=== PATIENT | male | born 2000 | race Two or more races ===

== ENCOUNTER 2023-03-27 12:27 | Inpatient (IN) | payer OTHER ==
[2023-03-27 15:27] LABS: VENOUS BASE EXCESS 0.4 mmol/L (-2-2); VENOUS O2 SATURATION 88.3 % (70-80); VENOUS PCO2 36.4 mmHg (38-52); VENOUS PH 7.44 (7.310-7.410)
[2023-03-27 15:36] LABS: BASO % 0.5 % (0-2.0); EOS % 2.6 % (0-4.5); HEMOGLOBIN 13.4 GM/dL (11.7-16.9); LYMPH % 11.7 % (8-40); MCH 30.7 pg (25.7-33.7); MCHC 33.4 g/dl (32.0-35.9); MEAN CELL VOLUME 91.9 fl (80-96); MEAN PLT VOLUME 8.7 fl (7.5-11.1); MONO % 8.5 % (3.8-10.2); NEUT % 76.7 % (42.8-82.8); PLATELET COUNT 287 10^3/uL (134-434); RBC 4.35 M/mm3 (4.00-5.60); RDW 13.3 % (11.9-15.9); WHITE BLOOD COUNT 7.4 K/mm3 (4.0-10.0)
[2023-03-27 15:43] LABS: INR 1.11 (0.83-1.09); PROTHROMBIN TIME (PATIENT) 12.9 SEC (9.7-13.0)
[2023-03-27] MEDS: SODIUM CHLORIDE 3,130 ML IV ONE (15:45)
[2023-03-27 15:46] LABS: ACTIVATED PTT 23.3 SECONDS (25.2-36.5)
[2023-03-27 17:21] LABS: CHLORIDE 100 mmol/L (98-107); SODIUM 128 mmol/L (136-145)
[2023-03-27 17:23] LABS: CALCIUM 8.7 mg/dL (8.5-10.1)
[2023-03-27 17:24] LABS: ALBUMIN 3.2 g/dl (3.4-5.0); BLOOD UREA NITROGEN 9.9 mg/dL (7-18); CO2 22 mmol/L (21-32); GLUCOSE,RANDOM 80 mg/dL (74-106)
[2023-03-27 17:27] LABS: CREATININE 1.1 mg/dL (0.55-1.3)
[2023-03-27 17:28] LABS: TOT PROT 8.9 g/dl (6.4-8.2)
[2023-03-27 17:29] LABS: BILIRUBIN,TOTAL 0.6 mg/dL (0.2-1)
[2023-03-27 17:30] LABS: ALK PHOS 87 U/L (45-117); ANION GAP 6 mmol/L (4-13); POTASSIUM 8.1 mmol/L (3.5-5.1); SGOT/AST 136 U/L (15-37); SGPT/ALT 119 U/L (13-61)
[2023-03-27] MEDS ORDERED: ACETAMINOPHEN INJECTION 100 ML IVPB ONE (18:04)
[2023-03-27] MEDS ORDERED: FAMOTIDINE 20 MG/50 ML IVPB 20 MG/50 ML MG IVPB ONE (18:05)
[2023-03-27] MEDS: ACETAMINOPHEN 1000 MG/100 ML BAG IVPB ONE (18:10)
[2023-03-27] MEDS: FAMOTIDINE 20 MG/50 ML IVPB 20 MG/50 ML MG IVPB ONE (19:25)
[2023-03-27] MEDS ORDERED: SULFAMETHOXAZOLE/TRIMETHOPRIM 800MG/160MG D.S. TABLET ONE (20:30)
[2023-03-27] MEDS: SULFAMETHOXAZOLE/TRIMETHOPRIM 400MG/80MG S.S. TABLET PO ONE (20:32)
[2023-03-27 21:23] LABS: CALCIUM 8.3 mg/dL (8.5-10.1)
[2023-03-27 21:24] LABS: BLOOD UREA NITROGEN 10.2 mg/dL (7-18)
[2023-03-27 21:27] LABS: CREATININE 0.9 mg/dL (0.55-1.3)
[2023-03-27 21:29] LABS: BILIRUBIN,TOTAL 0.4 mg/dL (0.2-1); TOT PROT 7.3 g/dl (6.4-8.2)
[2023-03-27 21:58] LABS: URINE APPEARANCE CLEAR; URINE BILIRUBIN NEGATIVE (NEGATIVE); URINE COLOR YELLOW; URINE GLUCOSE (UA) NEGATIVE (NEGATIVE); URINE KETONE NEGATIVE (NEGATIVE); URINE LEUK ESTERASE NEGATIVE (NEGATIVE); URINE NITRITE NEGATIVE (NEGATIVE); URINE PROTEIN NEGATIVE (NEGATIVE)
[2023-03-28] MEDS ORDERED: LIDOCAINE HCL 2% (20ML MULTI-DOSE VIAL) ONE (01:58)
[2023-03-28] MEDS ORDERED: ACETAMINOPHEN 325 MG TABLET (FP) ONE (02:15)
[2023-03-28] MEDS: ACETAMINOPHEN 325 MG TABLET (FP) PO PRN (02:17)
[2023-03-28 03:33] LABS: BF GLUCOSE (CSF ONLY) 52 mg/dL (40-70)
[2023-03-28 03:47] VITALS: BMI 34.2
[2023-03-28 04:25] LABS: CSF APPEARANCE CLEAR (CLEAR); CSF COLOR COLORLESS (COLORLESS); CSF WBC 5 mm3 (0-5)
[2023-03-28] MEDS: DOXYCYCLINE HYCLATE 100 MG CAPSULE PO SCH (09:21)
[2023-03-28] MEDS ORDERED: ENOXAPARIN NA (PORCINE) 40 MG/0.4 ML DISP.SYRIN SQ SCH (10:00)
[2023-03-28 10:11] LABS: BASO % 0.8 % (0-2.0); EOS % 2.3 % (0-4.5); LYMPH % 11.7 % (8-40); MCH 30.5 pg (25.7-33.7); MCHC 33.3 g/dl (32.0-35.9); MEAN CELL VOLUME 91.6 fl (80-96); MEAN PLT VOLUME 7.7 fl (7.5-11.1); MONO % 9.7 % (3.8-10.2); NEUT % 75.5 % (42.8-82.8); PLATELET COUNT 270 10^3/uL (134-434); RBC 4.26 M/mm3 (4.00-5.60); RDW 13.3 % (11.9-15.9); WHITE BLOOD COUNT 6.7 K/mm3 (4.0-10.0)
[2023-03-28] MEDS: VANCOMYCIN/WATER FOR INJ (PEG) 1,000 MG/200 ML BAG IVPB ONE (10:20)
[2023-03-28] MEDS: SULFAMETHOXAZOLE/TRIMETHOPRIM 800MG/160MG D.S. TABLET PO SCH (10:21)
[2023-03-28 10:40] LABS: BLOOD UREA NITROGEN 9.7 mg/dL (7-18); CALCIUM 8.6 mg/dL (8.5-10.1)
[2023-03-28 10:44] LABS: CREATININE 0.9 mg/dL (0.55-1.3); PHOSPHOROUS 2.8 mg/dL (2.5-4.9)
[2023-03-28 10:45] LABS: BILIRUBIN,TOTAL 0.5 mg/dL (0.2-1); TOT PROT 7.7 g/dl (6.4-8.2)
[2023-03-28] MEDS: CEFTRIAXONE 2 GM in DEXTROSE 5%-WATER 100 ML IVPB SCH ×2 (10:47→21:14)
[2023-03-28] MEDS: ACETAMINOPHEN 1000 MG/100 ML BAG IVPB PRN (11:02)
[2023-03-28] MEDS: BICTEGRAV/EMTRICIT/TENOFOV (BIKTARVY) 50-200-25 MG TABLET PO SCH (11:22)
[2023-03-28] MEDS: AMPICILLIN NA/SULBACTAM NA 2 GM in SODIUM CHLORIDE 100 ML IVPB SCH (11:32)
[2023-03-28] MEDS: AMPICILLIN NA/SULBACTAM NA 3 GM in SODIUM CHLORIDE 100 ML IVPB SCH (12:36)
[2023-03-28] MEDS: ACYCLOVIR INJECTION 800 MG in DEXTROSE 5%-WATER - 250 ML IVPB SCH (13:33)
[2023-03-28 14:16] LABS: COCAINE, UR NEGATIVE (NEGATIVE)
[2023-03-28 14:17] LABS: METHADONE, UR NEGATIVE (NEGATIVE); OPIATES, URI NEGATIVE (NEGATIVE); PHENCYCLIDINE,URINE NEGATIVE (NEGATIVE); URINE BARBITURATES NEGATIVE (NEGATIVE); URINE BENZODIAZEPINES NEGATIVE (NEGATIVE)
[2023-03-28 14:46] LABS: URINE AMPHETAMINES NEGATIVE (NEGATIVE)
[2023-03-28] MEDS: SODIUM CHLORIDE 1,000 ML IV STA (15:01)
[2023-03-28] MEDS: VANCOMYCIN/WATER FOR INJ (PEG) 1,000 MG/200 ML BAG IVPB SCH (18:49)
[2023-03-28] MEDS: DEXTROSE 5% IVPB SCH (20:56)
[2023-03-28] MEDS: WATER IVPB SCH (20:56)
[2023-03-28] MEDS: AMPHOTERICIN B LIPOSOMAL IVPB SCH (20:56)
[2023-03-29 10:19] LABS: BASO % 0.4 % (0-2.0); HEMATOCRIT 37.9 % (35.4-49); HEMOGLOBIN 12.6 GM/dL (11.7-16.9); LYMPH % 8.8 % (8-40); MCH 31.3 pg (25.7-33.7); MCHC 33.4 g/dl (32.0-35.9); MEAN CELL VOLUME 93.6 fl (80-96); MEAN PLT VOLUME 7.9 fl (7.5-11.1); NEUT % 82.8 % (42.8-82.8); PLATELET COUNT 255 10^3/uL (134-434); RBC 4.04 M/mm3 (4.00-5.60); RDW 13.1 % (11.9-15.9); WHITE BLOOD COUNT 6.7 K/mm3 (4.0-10.0)
[2023-03-29 10:35] LABS: CALCIUM 8.4 mg/dL (8.5-10.1)
[2023-03-29 10:36] LABS: BLOOD UREA NITROGEN 7.6 mg/dL (7-18)
[2023-03-29 10:39] LABS: BILIRUBIN,TOTAL 0.4 mg/dL (0.2-1)
[2023-03-29 10:42] LABS: TOT PROT 7.7 g/dl (6.4-8.2)
[2023-03-29] MEDS: ACETAMINOPHEN 1000 MG/100 ML BAG IVPB PRN ×2 (12:38→20:33)
[2023-03-29] MEDS: traMADol HCL 50 MG TABLET PO PRN (18:29)
[2023-03-29] MEDS: FLUCYTOSINE 250 MG CAPSULE PO SCH (20:08)
[2023-03-30 09:16] LABS: HEMATOCRIT 37.3 % (35.4-49); HEMOGLOBIN 12.4 GM/dL (11.7-16.9); MCH 30.8 pg (25.7-33.7); MCHC 33.3 g/dl (32.0-35.9); MEAN CELL VOLUME 92.3 fl (80-96); MEAN PLT VOLUME 8.1 fl (7.5-11.1); PLATELET COUNT 263 10^3/uL (134-434); RBC 4.04 M/mm3 (4.00-5.60); WHITE BLOOD COUNT 6.5 K/mm3 (4.0-10.0)
[2023-03-30] MEDS ORDERED: ACETAMINOPHEN 1000 MG/100 ML BAG IVPB PRN (09:55)
[2023-03-30 10:50] LABS: POTASSIUM 4.1 mmol/L (3.5-5.1)
[2023-03-30 10:52] LABS: CALCIUM 8.3 mg/dL (8.5-10.1)
[2023-03-30 10:53] LABS: ALBUMIN 3.2 g/dl (3.4-5.0)
[2023-03-30 10:56] LABS: BLOOD UREA NITROGEN 8.8 mg/dL (7-18); CREATININE 1.1 mg/dL (0.55-1.3)
[2023-03-30 10:58] LABS: BILIRUBIN,TOTAL 0.4 mg/dL (0.2-1); TOT PROT 7.9 g/dl (6.4-8.2)
[2023-03-30 12:16] LABS: ANISOCYTOSIS 0; MACROCYTOSIS 0
[2023-03-30] MEDS ORDERED: FLUCYTOSINE 500 MG CAPSULE PO ONE (15:00)
[2023-03-30] MEDS: FLUCYTOSINE 500 MG CAPSULE PO ONE (15:00)
[2023-03-30] MEDS: IBUPROFEN 200 MG TABLET PO PRN (15:08)
[2023-03-30] MEDS: ACETAMINOPHEN 325 MG TABLET (FP) PO ONE (17:21)
[2023-03-30] MEDS: FLUCYTOSINE 250 MG CAPSULE PO SCH (19:26)
[2023-03-30] MEDS ORDERED: NYSTATIN 500,000 UNITS TABLET PO SCH (22:00)
[2023-03-30] MEDS: MELATONIN 1 MG TABLET PO SCH (22:51)
[2023-03-31] MEDS: ALPRAZolam 1 MG TABLET PO PRN (01:27)
[2023-03-31 10:14] LABS: HEMATOCRIT 34.8 % (35.4-49); HEMOGLOBIN 11.6 GM/dL (11.7-16.9); MCH 30.7 pg (25.7-33.7); MCHC 33.3 g/dl (32.0-35.9); MEAN CELL VOLUME 92.1 fl (80-96); MEAN PLT VOLUME 7.6 fl (7.5-11.1); PLATELET COUNT 250 10^3/uL (134-434); RBC 3.78 M/mm3 (4.00-5.60); RDW 13.3 % (11.9-15.9); WHITE BLOOD COUNT 5.8 K/mm3 (4.0-10.0)
[2023-03-31 10:22] LABS: POTASSIUM 4.7 mmol/L (3.5-5.1)
[2023-03-31 10:24] LABS: CALCIUM 8.2 mg/dL (8.5-10.1)
[2023-03-31 10:25] LABS: ALBUMIN 2.9 g/dl (3.4-5.0); BLOOD UREA NITROGEN 18.5 mg/dL (7-18)
[2023-03-31 10:30] LABS: BILIRUBIN,TOTAL 0.4 mg/dL (0.2-1); TOT PROT 7.4 g/dl (6.4-8.2)
[2023-03-31 12:17] LABS: ANISOCYTOSIS 0; HELMET CELLS 0; HOWELL-JOLLY BODIES 0; MACROCYTOSIS 0; OVALOCYTE 0; ROULEAU 0; SICKELED CELLS 0; TARGET CELLS 0; TEAR DROP CELLS 0; TOXIC GRANULATION 0
[2023-03-31] MEDS: SODIUM CHLORIDE 1,000 ML IV SCH ×2 (13:05→16:40)
[2023-03-31] MEDS: PANTOPRAZOLE 40 MG TABLET PO SCH (13:06)
[2023-03-31] MEDS ORDERED: AMPICILLIN NA/SULBACTAM NA 3 GM in SODIUM CHLORIDE 100 ML IVPB SCH (13:32)
[2023-03-31] MEDS: ACETAMINOPHEN 325 MG TABLET (FP) PO PRN (16:40)
[2023-03-31] MEDS: traMADol HCL 50 MG TABLET PO ONE (23:09)
[2023-04-01] MEDS: SULFAMETHOXAZOLE/TRIMETHOPRIM 800MG/160MG D.S. TABLET PO SCH (09:30)
[2023-04-01 09:34] LABS: HEMATOCRIT 37.1 % (35.4-49); HEMOGLOBIN 12.9 GM/dL (11.7-16.9); MCH 31.4 pg (25.7-33.7); MCHC 34.6 g/dl (32.0-35.9); MEAN CELL VOLUME 90.7 fl (80-96); MEAN PLT VOLUME 7.2 fl (7.5-11.1); PLATELET COUNT 286 10^3/uL (134-434); RDW 13.3 % (11.9-15.9); WHITE BLOOD COUNT 5.4 K/mm3 (4.0-10.0)
[2023-04-01 09:54] LABS: POTASSIUM 4.6 mmol/L (3.5-5.1)
[2023-04-01 09:59] LABS: CALCIUM 8.6 mg/dL (8.5-10.1)
[2023-04-01 10:00] LABS: ALBUMIN 3.1 g/dl (3.4-5.0); BLOOD UREA NITROGEN 14.8 mg/dL (7-18)
[2023-04-01 10:02] LABS: CREATININE 1.2 mg/dL (0.55-1.3)
[2023-04-01 10:03] LABS: BILIRUBIN,TOTAL 0.4 mg/dL (0.2-1)
[2023-04-01 10:06] LABS: TOT PROT 8.2 g/dl (6.4-8.2)
[2023-04-01] MEDS: SODIUM CHLORIDE 1,000 ML IV SCH (10:16)
[2023-04-01 12:33] LABS: ANISOCYTOSIS 0; HELMET CELLS 0; HOWELL-JOLLY BODIES 0; MACROCYTOSIS 0; OVALOCYTE 0; ROULEAU 0; SICKELED CELLS 0; TARGET CELLS 0; TEAR DROP CELLS 0; TOXIC GRANULATION 0
[2023-04-01] MEDS: CYCLOBENZAPRINE HCL 10 MG TABLET (FP) PO ONE (15:29)
[2023-04-01] MEDS: LIDOCAINE 4% PATCH TP SCH (17:39)
[2023-04-01] MEDS: CYCLOBENZAPRINE HCL 5 MG TABLET PO PRN (20:35)
[2023-04-01] MEDS: LIDOCAINE PATCH REMOVAL MC SCH (21:46)
[2023-04-02 11:51] LABS: HEMATOCRIT 38.4 % (35.4-49); MCH 30.9 pg (25.7-33.7); MCHC 33.9 g/dl (32.0-35.9); MEAN CELL VOLUME 90.9 fl (80-96); MEAN PLT VOLUME 7.9 fl (7.5-11.1); PLATELET COUNT 294 10^3/uL (134-434); RBC 4.22 M/mm3 (4.00-5.60); RDW 13.2 % (11.9-15.9); WHITE BLOOD COUNT 4.7 K/mm3 (4.0-10.0)
[2023-04-02 12:19] LABS: POTASSIUM 4.7 mmol/L (3.5-5.1)
[2023-04-02 12:27] LABS: CREATININE 1.4 mg/dL (0.55-1.3)
[2023-04-02 12:29] LABS: BILIRUBIN,TOTAL 0.4 mg/dL (0.2-1); CALCIUM 8.7 mg/dL (8.5-10.1); TOT PROT 7.8 g/dl (6.4-8.2)
[2023-04-02 12:32] LABS: BLOOD UREA NITROGEN 20.4 mg/dL (7-18)
[2023-04-02] MEDS: SODIUM CHLORIDE 1,000 ML IV SCH (17:18)
[2023-04-03 09:04] LABS: HEMATOCRIT 36.3 % (35.4-49); HEMOGLOBIN 12.2 GM/dL (11.7-16.9); MCH 30.8 pg (25.7-33.7); MCHC 33.7 g/dl (32.0-35.9); MEAN CELL VOLUME 91.3 fl (80-96); MEAN PLT VOLUME 7.3 fl (7.5-11.1); PLATELET COUNT 293 10^3/uL (134-434); RBC 3.98 M/mm3 (4.00-5.60); RDW 13.2 % (11.9-15.9); WHITE BLOOD COUNT 4.7 K/mm3 (4.0-10.0)
[2023-04-03 09:23] LABS: POTASSIUM 4.9 mmol/L (3.5-5.1)
[2023-04-03 09:31] LABS: CREATININE 1.2 mg/dL (0.55-1.3)
[2023-04-03 09:32] LABS: BILIRUBIN,TOTAL 0.4 mg/dL (0.2-1); CALCIUM 8.7 mg/dL (8.5-10.1); TOT PROT 7.8 g/dl (6.4-8.2)
[2023-04-03 09:33] LABS: BLOOD UREA NITROGEN 19.2 mg/dL (7-18)
[2023-04-03 09:56] LABS: ANISOCYTOSIS 0; MACROCYTOSIS 0
[2023-04-04] MEDS ORDERED: traMADol HCL 50 MG TABLET PO PRN (09:32)
[2023-04-04] MEDS ORDERED: HYDROmorphone HCL 2 MG TABLET PO PRN (09:33)
[2023-04-04 10:34] LABS: HEMATOCRIT 36.6 % (35.4-49); HEMOGLOBIN 12.5 GM/dL (11.7-16.9); MCH 31.3 pg (25.7-33.7); MCHC 34.1 g/dl (32.0-35.9); MEAN CELL VOLUME 91.9 fl (80-96); MEAN PLT VOLUME 7.3 fl (7.5-11.1); PLATELET COUNT 284 10^3/uL (134-434); RBC 3.98 M/mm3 (4.00-5.60); RDW 13.3 % (11.9-15.9); WHITE BLOOD COUNT 4.6 K/mm3 (4.0-10.0)
[2023-04-04 10:54] LABS: POTASSIUM 4.7 mmol/L (3.5-5.1)
[2023-04-04 10:57] LABS: CALCIUM 8.8 mg/dL (8.5-10.1)
[2023-04-04 10:58] LABS: ALBUMIN 3.2 g/dl (3.4-5.0); BLOOD UREA NITROGEN 20.3 mg/dL (7-18)
[2023-04-04 11:01] LABS: CREATININE 1.7 mg/dL (0.55-1.3)
[2023-04-04 11:02] LABS: BILIRUBIN,TOTAL 0.4 mg/dL (0.2-1)
[2023-04-04 12:03] LABS: ANISOCYTOSIS 1+; MACROCYTOSIS 0
[2023-04-04] MEDS: FLUCYTOSINE 500 MG CAPSULE PO SCH (14:15)
[2023-04-04] MEDS: ACETAMINOPHEN 325 MG TABLET (FP) PO PRN ×2 (17:18→23:55)
[2023-04-05 10:44] LABS: HEMATOCRIT 37.2 % (35.4-49); HEMOGLOBIN 12.7 GM/dL (11.7-16.9); MEAN CELL VOLUME 91.3 fl (80-96); MEAN PLT VOLUME 7.9 fl (7.5-11.1); PLATELET COUNT 253 10^3/uL (134-434); RBC 4.08 M/mm3 (4.00-5.60); RDW 13.1 % (11.9-15.9); WHITE BLOOD COUNT 3.7 K/mm3 (4.0-10.0)
[2023-04-05 10:57] LABS: POTASSIUM 5.4 mmol/L (3.5-5.1)
[2023-04-05 11:13] LABS: ALBUMIN 3.2 g/dl (3.4-5.0); BLOOD UREA NITROGEN 19.2 mg/dL (7-18); MAGNESIUM 2.1 mg/dL (1.8-2.4)
[2023-04-05 11:16] LABS: CREATININE 1.4 mg/dL (0.55-1.3)
[2023-04-05 11:17] LABS: PHOSPHOROUS 5.1 mg/dL (2.5-4.9)
[2023-04-05 11:18] LABS: BILIRUBIN,TOTAL 0.5 mg/dL (0.2-1); TOT PROT 8.1 g/dl (6.4-8.2)
[2023-04-05 12:26] LABS: ANISOCYTOSIS 0; MACROCYTOSIS 0
[2023-04-05 14:12] LABS: CMV IgG CSF < 0.20 U/mL (<=0.70); TOXOPLASMA IGG,CSF 6.4 IU/mL (<=8.8)
[2023-04-05] MEDS: SODIUM ZIRCONIUM CYCLOSILICATE (LOKELMA) 5 GM PACKET PO SCH (14:13)
[2023-04-05 16:13] LABS: URINE APPEARANCE CLEAR; URINE BILIRUBIN NEGATIVE (NEGATIVE); URINE COLOR YELLOW; URINE GLUCOSE (UA) NEGATIVE (NEGATIVE); URINE KETONE NEGATIVE (NEGATIVE); URINE LEUK ESTERASE NEGATIVE (NEGATIVE); URINE NITRITE NEGATIVE (NEGATIVE); URINE PROTEIN TRACE (NEGATIVE); URINE UROBILINOGEN 0.2 mg/dL (0.2-1.0)
[2023-04-06 10:05] LABS: HEMATOCRIT 33.9 % (35.4-49); HEMOGLOBIN 11.5 GM/dL (11.7-16.9); MEAN PLT VOLUME 7.7 fl (7.5-11.1); PLATELET COUNT 206 10^3/uL (134-434); RBC 3.72 M/mm3 (4.00-5.60); RDW 13.6 % (11.9-15.9); WHITE BLOOD COUNT 3.4 K/mm3 (4.0-10.0)
[2023-04-06 10:24] LABS: POTASSIUM 5.1 mmol/L (3.5-5.1)
[2023-04-06 10:35] LABS: CALCIUM 8.3 mg/dL (8.5-10.1)
[2023-04-06 10:36] LABS: ALBUMIN 3.1 g/dl (3.4-5.0); BLOOD UREA NITROGEN 20.2 mg/dL (7-18); MAGNESIUM 1.9 mg/dL (1.8-2.4)
[2023-04-06 10:38] LABS: CREATININE 1.3 mg/dL (0.55-1.3)
[2023-04-06 10:39] LABS: PHOSPHOROUS 5.6 mg/dL (2.5-4.9)
[2023-04-06 10:40] LABS: BILIRUBIN,TOTAL 0.3 mg/dL (0.2-1); TOT PROT 7.5 g/dl (6.4-8.2)
[2023-04-06 11:53] LABS: ANISOCYTOSIS 0; MACROCYTOSIS 0
[2023-04-06] MEDS: CALCIUM ACETATE 667 MG CAPSULE (FP) PO SCH (13:23)
[2023-04-06] MEDS ORDERED: IOHEXOL (OMNIPAQUE PO) 12 MG/ML - 500 ML BOTTLE PO ONE (14:15)
[2023-04-06] MEDS: MELATONIN 5 MG TABLETS PO ONE (23:51)
[2023-04-07 11:43] LABS: POTASSIUM 5.4 mmol/L (3.5-5.1)
[2023-04-07 11:44] LABS: BASO % 1.1 % (0-2.0); EOS % 1.6 % (0-4.5); HEMATOCRIT 37.2 % (35.4-49); HEMOGLOBIN 12.2 GM/dL (11.7-16.9); LYMPH % 32.9 % (8-40); MCH 30.3 pg (25.7-33.7); MCHC 32.9 g/dl (32.0-35.9); MEAN CELL VOLUME 92.1 fl (80-96); MEAN PLT VOLUME 7.8 fl (7.5-11.1); MONO % 6.1 % (3.8-10.2); NEUT % 58.3 % (42.8-82.8); PLATELET COUNT 205 10^3/uL (134-434); RBC 4.04 M/mm3 (4.00-5.60); RDW 13.3 % (11.9-15.9); WHITE BLOOD COUNT 2.6 K/mm3 (4.0-10.0)
[2023-04-07 11:48] LABS: ALBUMIN 3.2 g/dl (3.4-5.0); BLOOD UREA NITROGEN 16.9 mg/dL (7-18); CALCIUM 8.5 mg/dL (8.5-10.1); MAGNESIUM 1.7 mg/dL (1.8-2.4)
[2023-04-07 11:51] LABS: CREATININE 1.1 mg/dL (0.55-1.3); PHOSPHOROUS 4.5 mg/dL (2.5-4.9)
[2023-04-07 11:52] LABS: BILIRUBIN,TOTAL 0.3 mg/dL (0.2-1)
[2023-04-07] MEDS: SODIUM ZIRCONIUM CYCLOSILICATE (LOKELMA) 5 GM PACKET PO ONE (15:10)
[2023-04-07] MEDS: SODIUM ZIRCONIUM CYCLOSILICATE (LOKELMA) 5 GM PACKET PO SCH (15:11)
[2023-04-07] MEDS: MAGNESIUM SULFATE IN WATER 2 GM/50 ML IVPB IVPB ONE (17:55)
[2023-04-07] MEDS: MELATONIN 5 MG TABLETS PO ONE (21:50)
[2023-04-08 11:22] LABS: BASO % 0.7 % (0-2.0); EOS % 2.1 % (0-4.5); HEMATOCRIT 39.3 % (35.4-49); HEMOGLOBIN 13.1 GM/dL (11.7-16.9); LYMPH % 33.4 % (8-40); MCH 30.6 pg (25.7-33.7); MCHC 33.3 g/dl (32.0-35.9); MEAN CELL VOLUME 91.9 fl (80-96); MEAN PLT VOLUME 7.8 fl (7.5-11.1); MONO % 4.9 % (3.8-10.2); NEUT % 58.9 % (42.8-82.8); PLATELET COUNT 205 10^3/uL (134-434); POTASSIUM 4.7 mmol/L (3.5-5.1); RBC 4.27 M/mm3 (4.00-5.60); RDW 13.3 % (11.9-15.9); WHITE BLOOD COUNT 2.8 K/mm3 (4.0-10.0)
[2023-04-08 12:04] LABS: BLOOD UREA NITROGEN 17.6 mg/dL (7-18); CALCIUM 9.3 mg/dL (8.5-10.1); MAGNESIUM 1.5 mg/dL (1.8-2.4)
[2023-04-08 12:05] LABS: ALBUMIN 3.1 g/dl (3.4-5.0)
[2023-04-08 12:06] LABS: PHOSPHOROUS 5.1 mg/dL (2.5-4.9)
[2023-04-08 12:07] LABS: BILIRUBIN,TOTAL 0.3 mg/dL (0.2-1); CREATININE 1.1 mg/dL (0.55-1.3)
[2023-04-08] MEDS: MAGNESIUM SULFATE IN WATER 2 GM/50 ML IVPB IVPB ONE (15:31)
[2023-04-09 09:43] LABS: BASO % 0.4 % (0-2.0); EOS % 4.4 % (0-4.5); HEMATOCRIT 38.5 % (35.4-49); HEMOGLOBIN 13.1 GM/dL (11.7-16.9); LYMPH % 35.1 % (8-40); MCH 30.9 pg (25.7-33.7); MCHC 33.9 g/dl (32.0-35.9); MEAN CELL VOLUME 91.2 fl (80-96); MEAN PLT VOLUME 7.5 fl (7.5-11.1); MONO % 7.9 % (3.8-10.2); NEUT % 52.2 % (42.8-82.8); PLATELET COUNT 191 10^3/uL (134-434); RBC 4.22 M/mm3 (4.00-5.60); RDW 13.4 % (11.9-15.9); WHITE BLOOD COUNT 2.2 K/mm3 (4.0-10.0)
[2023-04-09 10:04] LABS: POTASSIUM 5.4 mmol/L (3.5-5.1)
[2023-04-09 10:20] LABS: CALCIUM 9.3 mg/dL (8.5-10.1)
[2023-04-09 10:21] LABS: ALBUMIN 3.2 g/dl (3.4-5.0); BLOOD UREA NITROGEN 27.2 mg/dL (7-18); MAGNESIUM 2.1 mg/dL (1.8-2.4)
[2023-04-09 10:25] LABS: BILIRUBIN,TOTAL 0.4 mg/dL (0.2-1); CREATININE 1.5 mg/dL (0.55-1.3); PHOSPHOROUS 5.9 mg/dL (2.5-4.9); TOT PROT 8.1 g/dl (6.4-8.2)
[2023-04-09] MEDS: SODIUM CHLORIDE 1,000 ML IV STA (11:26)
[2023-04-09] MEDS: SODIUM ZIRCONIUM CYCLOSILICATE (LOKELMA) 5 GM PACKET PO ONE (11:26)
[2023-04-10] MEDS: ATOVAQUONE 750 MG/5 ML (UNIT-DOSE PACKAGING) PO SCH (08:39)
[2023-04-10 09:38] LABS: BASO % 0.7 % (0-2.0); EOS % 3.7 % (0-4.5); HEMATOCRIT 38.7 % (35.4-49); HEMOGLOBIN 12.9 GM/dL (11.7-16.9); LYMPH % 32.9 % (8-40); MCH 30.6 pg (25.7-33.7); MCHC 33.3 g/dl (32.0-35.9); MEAN PLT VOLUME 7.9 fl (7.5-11.1); MONO % 8.5 % (3.8-10.2); NEUT % 54.2 % (42.8-82.8); PLATELET COUNT 180 10^3/uL (134-434); RBC 4.21 M/mm3 (4.00-5.60); RDW 13.2 % (11.9-15.9); WHITE BLOOD COUNT 2.4 K/mm3 (4.0-10.0)
[2023-04-10 09:56] LABS: POTASSIUM 5.4 mmol/L (3.5-5.1)
[2023-04-10 10:06] LABS: ALBUMIN 3.2 g/dl (3.4-5.0); BLOOD UREA NITROGEN 26.4 mg/dL (7-18)
[2023-04-10 10:09] LABS: CREATININE 1.5 mg/dL (0.55-1.3)
[2023-04-10 10:11] LABS: BILIRUBIN,TOTAL 0.3 mg/dL (0.2-1); TOT PROT 7.8 g/dl (6.4-8.2)
[2023-04-10] MEDS ORDERED: BUPIVACAINE HCL/PF 0.25% (2.5MG/ML) 10 ML VIAL ONE (10:54)
[2023-04-10] MEDS ORDERED: MIDAZOLAM HCL 2 MG/2 ML SINGLE DOSE VIAL ONE (11:21)
[2023-04-10] MEDS ORDERED: HYDROmorphone HCl 2 MG/ML VIAL ONE (11:36)
[2023-04-10] MEDS ORDERED: PROPOFOL 20 ML ONE (11:36)
[2023-04-10] MEDS: ceFAZolin SODIUM 1 GM VIAL IVPB ONE (11:45)
[2023-04-10] MEDS: BUPIVACAINE HCL/PF 0.25% (2.5MG/ML) 10 ML VIAL IJ ONE (11:51)
[2023-04-10] MEDS ORDERED: HYDROmorphone HCL 2 MG TABLET PO PRN (12:56)
[2023-04-10] MEDS ORDERED: CYCLOBENZAPRINE HCL 5 MG TABLET PO PRN (12:56)
[2023-04-10] MEDS ORDERED: traMADol HCL 50 MG TABLET PO PRN (12:56)
[2023-04-10] MEDS ORDERED: ACETAMINOPHEN 325 MG TABLET (FP) PO PRN (12:56)
[2023-04-10] MEDS: SODIUM ZIRCONIUM CYCLOSILICATE (LOKELMA) 5 GM PACKET PO ONE ×2 (14:27→14:36)
[2023-04-10] MEDS: LACTATED RINGERS SOLUTION 1,000 ML/1,000 ML INFUS.BAG IV SCH ×2 (14:28→14:36)
[2023-04-10 14:46] VITALS: BP 98/58; PULSE 84; RESP 16; TEMP 97.9
[2023-04-10] MEDS ORDERED: LIDOCAINE PATCH REMOVAL MC SCH (22:00)
[2023-04-11] MEDS ORDERED: ATOVAQUONE 750 MG/5 ML (UNIT-DOSE PACKAGING) PO SCH (08:00)
[2023-04-11] MEDS ORDERED: LIDOCAINE 4% PATCH TP SCH (10:00)
== END 2023-04-10 17:00 | disposition home or self-care (01) | DRG 710 ==
LOC: JER 12:27 → JERFT 12:27 → JERBED 19:35 → J5S 03-28 02:38
PROVIDERS: ADMIT Internal Medicine
PROC: 009U3ZX Drainage of Spinal Canal, Percutaneous Approach, Diagnostic (ICD-10-PCS; 2023-03-27)
PROC: 07JN3ZZ Inspection of Lymphatic, Percutaneous Approach (ICD-10-PCS; 2023-04-08)
PROC: 07BJ0ZX Excision of Left Inguinal Lymphatic, Open Approach, Diagnostic (ICD-10-PCS; principal; 2023-04-10 14:00)
DX: A41.9 Sepsis, unspecified organism (principal); A74.9 Chlamydial infection, unspecified; B20 Human immunodeficiency virus [HIV] disease; B37.0 Candidal stomatitis; R74.01 Elevation of levels of liver transaminase levels; G03.9 Meningitis, unspecified; N17.9 Acute kidney failure, unspecified; E87.5 Hyperkalemia; E87.1 Hypo-osmolality and hyponatremia; R59.0 Localized enlarged lymph nodes
CPT/HCPCS: 0241U-QW; 36415; 70450-TC; 70552-TC; 71046-TC-FY; 71260-TC; 72125-TC; 74177-TC; 76775-TC; 76856-TC; 76942-TC; 80048; 80053; 80307; 81003; 82550; 82553; 82803; 82945; 83605; 83615; 83735; 84100; 84157; 84484; 85025; 85027; 85610; 85730; 86140; 86480; 86592; 86644; 86682; 86777; 86780; 87040; 87070; 87086; 87116; 87205; 87252; 87385; 87449; 87497; 87529; 87799; 87899; 88305-TC; 93005; 93010; 94760; 99285-25; J0131; J0289; Q9967

== ENCOUNTER 2024-01-15 23:37 | Observation (INO) | payer OTHER ==
[2024-01-15 23:50] VITALS: BMI 30.9
[2024-01-15] MEDS ORDERED: ALBUTEROL SO4 2.5/IPRATROPIUM 0.5 INH SOL 3 ML VIAL.NEB. NEB ONE (23:59)
[2024-01-16] MEDS ORDERED: ALBUTEROL SO4 2.5/IPRATROPIUM 0.5 INH SOL 3 ML VIAL.NEB. NEB ONE (00:02)
[2024-01-16] MEDS: ALBUTEROL SO4 2.5/IPRATROPIUM 0.5 INH SOL 3 ML VIAL.NEB. NEB ONE (00:11)
[2024-01-16 00:35] LABS: BASO % 0.2 % (0-2.0); HEMATOCRIT 41.6 % (35.4-49); HEMOGLOBIN 14.1 GM/dL (11.7-16.9); LYMPH % 12.1 % (8-40); MCH 31.1 pg (25.7-33.7); MCHC 33.8 g/dl (32.0-35.9); MEAN PLT VOLUME 7.5 fl (7.5-11.1); MONO % 3.3 % (3.8-10.2); NEUT % 78.4 % (42.8-82.8); PLATELET COUNT 310 10^3/uL (134-434); RBC 4.53 M/mm3 (4.00-5.60); RDW 14.6 % (11.9-15.9)
[2024-01-16 00:53] LABS: POTASSIUM 4.1 mmol/L (3.5-5.1)
[2024-01-16 00:56] LABS: CALCIUM 9.4 mg/dL (8.5-10.1)
[2024-01-16 00:57] LABS: ALBUMIN 3.7 g/dl (3.4-5.0); BLOOD UREA NITROGEN 14.6 mg/dL (7-18)
[2024-01-16 01:00] LABS: CREATININE 1.2 mg/dL (0.55-1.3)
[2024-01-16 01:02] LABS: BILIRUBIN,TOTAL 0.4 mg/dL (0.2-1); TOT PROT 8.6 g/dl (6.4-8.2)
[2024-01-16] MEDS ORDERED: SULFAMETHOXAZOLE/TRIMETHOPRIM 800MG/160MG D.S. TABLET ONE (03:20)
[2024-01-16] MEDS: SULFAMETHOXAZOLE/TRIMETHOPRIM 800MG/160MG D.S. TABLET PO ONE (03:25)
[2024-01-16] MEDS ORDERED: ALBUTEROL SO4 2.5/IPRATROPIUM 0.5 INH SOL 3 ML VIAL.NEB. NEB PRN (05:05)
[2024-01-16] MEDS: methylPREDNISolone NA SUCC 40 MG/1 ML VIAL IVPUSH SCH (05:09)
[2024-01-16 06:03] LABS: HEMATOCRIT 41.2 % (35.4-49); HEMOGLOBIN 13.6 GM/dL (11.7-16.9); MCH 30.6 pg (25.7-33.7); MCHC 33.1 g/dl (32.0-35.9); MEAN CELL VOLUME 92.5 fl (80-96); MEAN PLT VOLUME 7.3 fl (7.5-11.1); PLATELET COUNT 305 10^3/uL (134-434); RBC 4.45 M/mm3 (4.00-5.60); RDW 14.4 % (11.9-15.9); WHITE BLOOD COUNT 15.2 K/mm3 (4.0-10.0)
[2024-01-16 06:28] LABS: ARTERIAL BLD GAS O2 SATURATION 94.3 % (95-98); ARTERIAL BLOOD GAS BASE EXCESS -3.6 mmol/L (-2-2); ARTERIAL BLOOD GAS PO2 72.2 mmHg (80-100); ARTERIAL BLOOD GAS pH 7.375 (7.350-7.450)
[2024-01-16 06:36] LABS: BLOOD UREA NITROGEN 12.2 mg/dL (7-18); CALCIUM 8.7 mg/dL (8.5-10.1)
[2024-01-16 06:37] LABS: ALBUMIN 3.6 g/dl (3.4-5.0)
[2024-01-16 06:39] LABS: ALLENS TEST POSITIVE
[2024-01-16 06:41] LABS: BILIRUBIN,TOTAL 0.3 mg/dL (0.2-1)
[2024-01-16 07:28] LABS: N-TERMINAL BNP 33.1 pg/ml (5-125)
[2024-01-16] MEDS: ALBUTEROL SO4 2.5/IPRATROPIUM 0.5 INH SOL 3 ML VIAL.NEB. NEB SCH (08:10)
[2024-01-16] MEDS: ENOXAPARIN NA (PORCINE) 40 MG/0.4 ML DISP.SYRIN SQ SCH (09:54)
[2024-01-16] MEDS ORDERED: PATIENT'S OWN MEDICATION (NON-FORMULARY) (Doravirine 100 MG Tablet) PO SCH (10:00)
[2024-01-16] MEDS: DOLUTEGRAVIR SODIUM 50 MG TABLET (NON-FORMULARY) PO SCH (12:06)
[2024-01-16] MEDS: CEFTRIAXONE 1 G/50 ML PREMIX 50 ML IVPB SCH (16:59)
[2024-01-16] MEDS: AZITHROMYCIN IVPB 500 MG/250 ML BAG IVPB SCH (17:00)
[2024-01-16 19:08] LABS: PH,URINE 5.5 (5.0-8.0); URINE APPEARANCE CLEAR; URINE BILIRUBIN NEGATIVE (NEGATIVE); URINE COLOR YELLOW; URINE GLUCOSE (UA) TRACE (NEGATIVE); URINE KETONE NEGATIVE (NEGATIVE); URINE LEUK ESTERASE NEGATIVE (NEGATIVE); URINE NITRITE NEGATIVE (NEGATIVE); URINE PROTEIN NEGATIVE (NEGATIVE); URINE UROBILINOGEN 0.2 mg/dL (0.2-1.0)
[2024-01-17 08:22] LABS: BASO % 0.2 % (0-2.0); HEMATOCRIT 42.1 % (35.4-49); HEMOGLOBIN 13.9 GM/dL (11.7-16.9); LYMPH % 10.3 % (8-40); MCH 30.7 pg (25.7-33.7); MEAN PLT VOLUME 7.5 fl (7.5-11.1); MONO % 1.5 % (3.8-10.2); PLATELET COUNT 357 10^3/uL (134-434); RBC 4.53 M/mm3 (4.00-5.60); RDW 14.3 % (11.9-15.9); WHITE BLOOD COUNT 18.8 K/mm3 (4.0-10.0)
[2024-01-17 08:38] LABS: POTASSIUM 4.4 mmol/L (3.5-5.1)
[2024-01-17 08:42] LABS: CALCIUM 9.5 mg/dL (8.5-10.1)
[2024-01-17 08:43] LABS: ALBUMIN 3.8 g/dl (3.4-5.0); BLOOD UREA NITROGEN 14.4 mg/dL (7-18)
[2024-01-17 08:46] LABS: CREATININE 1.1 mg/dL (0.55-1.3)
[2024-01-17 08:47] LABS: BILIRUBIN,TOTAL 0.3 mg/dL (0.2-1); TOT PROT 9.1 g/dl (6.4-8.2)
[2024-01-17] MEDS: PANTOPRAZOLE 40 MG TABLET PO SCH (09:56)
[2024-01-17] MEDS: ACETAMINOPHEN 325 MG TABLET (FP) PO PRN (11:27)
[2024-01-18 08:32] LABS: BASO % 0.1 % (0-2.0); EOS % 0.1 % (0-4.5); HEMATOCRIT 41.5 % (35.4-49); LYMPH % 6.8 % (8-40); MCH 31.2 pg (25.7-33.7); MCHC 33.8 g/dl (32.0-35.9); MEAN CELL VOLUME 92.2 fl (80-96); MEAN PLT VOLUME 7.8 fl (7.5-11.1); MONO % 2.6 % (3.8-10.2); NEUT % 90.4 % (42.8-82.8); PLATELET COUNT 388 10^3/uL (134-434); RDW 14.7 % (11.9-15.9); WHITE BLOOD COUNT 19.1 K/mm3 (4.0-10.0)
[2024-01-18 08:55] LABS: POTASSIUM 4.9 mmol/L (3.5-5.1)
[2024-01-18 09:01] LABS: ALBUMIN 3.9 g/dl (3.4-5.0); CALCIUM 9.5 mg/dL (8.5-10.1); MAGNESIUM 2.3 mg/dL (1.8-2.4)
[2024-01-18 09:04] LABS: CREATININE 0.9 mg/dL (0.55-1.3)
[2024-01-18 09:06] LABS: BILIRUBIN,TOTAL 0.2 mg/dL (0.2-1); TOT PROT 8.8 g/dl (6.4-8.2)
[2024-01-18 11:20] VITALS: PULSE 76; RESP 16
[2024-01-18 14:00] VITALS: BP 138/70; TEMP 98.1
[2024-01-29] MEDS ORDERED: FLU VACCINE (FLULAVAL) PF 45 MCG/0.5 ML SYRINGE 2024-2025 IM ONE (08:36)
== END 2024-01-18 16:03 | disposition home or self-care (01) ==
LOC: JER 23:37 → JERBED 01-16 03:27 → J7W 01-16 06:55
PROVIDERS: ADMIT Internal Medicine; ATTEND Nurse Practitioner Family
PROC: 3E03329 Introduction of Other Anti-infective into Peripheral Vein, Percutaneous Approach (ICD-10-PCS; principal; 2024-01-16)
PROC: 3E0337Z Introduction of Electrolytic and Water Balance Substance into Peripheral Vein, Percutaneous Approach (ICD-10-PCS; 2024-01-16)
DX: J18.9 Pneumonia, unspecified organism (principal); R09.02 Hypoxemia; J45.909 Unspecified asthma, uncomplicated; B20 Human immunodeficiency virus [HIV] disease; R05.9 Cough, unspecified; Z29.89 Encounter for other specified prophylactic measures
CPT/HCPCS: 0241U-QW; 36415; 36600; 71045-TC-FY; 71275-TC; 80053; 81003; 82803; 83615; 83735; 83880; 85025; 85027; 86359; 86360; 87040; 87070; 87086; 87205; 87899; 93005; 93010; 94640; 96365; 96367; 96372; 96375; 99285-25; G0378; Q9967